=== PATIENT | female | born 1955 | race Caucasian/White ===

== ENCOUNTER → 2017-02-01 | Outpatient (CLI) | payer BC ==
--- NOTE | 2017-02-02 08:21 | MM ---
Reason for exam: screening (asymptomatic). Last mammogram was performed 4 years and 5 months ago. History: Patient is postmenopausal. Family history of breast cancer in sister at age 56. Physical Findings: A clinical breast exam by your physician is recommended on an annual basis and results should be correlated with mammographic findings. MG Screening Mammo w CAD Bilateral CC and MLO view(s) were taken. Prior study comparison: September 14, 2012, bilateral digital screening mammo w/CAD. 2008, mammogram, performed at [facility]. There are scattered fibroglandular densities. There is no discrete abnormality. No significant changes when compared with prior studies. ASSESSMENT: Negative, BI-RAD 1 RECOMMENDATION: Routine screening mammogram of both breasts in 1 year.
== END | disposition home or self-care (01) ==
LOC: RADMAMWWP 08:58
PROVIDERS: ATTEND Family Medicine
DX: Z12.31 Encounter for screening mammogram for malignant neoplasm of breast (principal)

== ENCOUNTER → 2018-02-16 | Outpatient (CLI) | payer BC ==
--- NOTE | 2018-02-17 08:48 | MM ---
Reason for exam: screening (asymptomatic). Last mammogram was performed 1 year ago. History: Patient is postmenopausal. Family history of breast cancer in sister at age 56. Physical Findings: A clinical breast exam by your physician is recommended on an annual basis and results should be correlated with mammographic findings. MG 3D Screening Mammo W/Cad Bilateral CC and MLO view(s) were taken. Prior study comparison: February 01, 2017, bilateral MG screening mammo w CAD. September 14, 2012, bilateral digital screening mammo w/CAD. There are scattered fibroglandular densities. There is no discrete abnormality. No significant changes when compared with prior studies. ASSESSMENT: Negative, BI-RAD 1 RECOMMENDATION: Routine screening mammogram of both breasts in 1 year.
== END | disposition home or self-care (01) ==
LOC: RADMAMWWP 10:18
PROVIDERS: ATTEND Family Medicine
DX: Z12.31 Encounter for screening mammogram for malignant neoplasm of breast (principal)
CPT/HCPCS: 77063; 77067

== ENCOUNTER → 2019-03-23 | Outpatient (CLI) | payer MEDICARE, BC ==
--- NOTE | 2019-03-30 12:03 | MM ---
Reason for exam: screening (asymptomatic). Last mammogram was performed 1 year and 1 month ago. History: Patient is postmenopausal. Family history of breast cancer in sister at age 56. Physical Findings: A clinical breast exam by your physician is recommended on an annual basis and results should be correlated with mammographic findings. MG Screening Mammo w CAD Bilateral CC and MLO view(s) were taken. Prior study comparison: February 16, 2018, bilateral MG 3d screening mammo w/cad. February 01, 2017, bilateral MG screening mammo w CAD. There are scattered fibroglandular densities. There is no discrete abnormality. ASSESSMENT: Negative, BI-RAD 1 RECOMMENDATION: Routine screening mammogram of both breasts in 1 year.
--- NOTE | 2019-03-31 09:41 | BD ---
EXAMINATION TYPE: Axial Bone Density DATE OF EXAM: 03/23/2019 COMPARISON: NONE CLINICAL HISTORY: Z 78.01 Height: 63 Weight: 181.4 FRAX RISK QUESTIONS: Alcohol (3 or more units per day): no Family History (Parent hip fracture): no Glucocorticoids (More than 3mos): no (Ex: prednisone, prednisolone, methylprednisolone, dexamethasone, and hydrocortisone). History of Fracture in Adulthood: no Secondary Osteoporosis: 1. Type 1 Diabetes: no 2. Hyperthyroidism: no 3. Menopause before 45: no 4. Malnutrition: no 5. Chronic liver disease: no Rheumatoid Arthritis: no Current Tobacco Use: no RISK FACTORS HISTORY OF: Family History of Osteoporosis: no Active: yes Postmenopausal woman: age 46 Lost more than 2 inches in height since high school: no MEDICATIONS: blood pressure, cholesterol,vit d Additional History: EXAM MEASUREMENTS: Bone mineral densitometry was performed using the [employer] System. Bone mineral density as measured about the Lumbar spine is: ----- L1-L4(G/cm2): 1.160 T Score Values are as follows: ----- L2: 0.5 ----- L3: -0.1 ----- L4: -0.9 ----- L1-L4: -0.2 Bone mineral density : baseline Bone mineral density about the R hip (g/cm2): 0.784 Bone mineral density about the L hip (g/cm2): 0.775 T Score values are as follows: -----R Neck: -1.8 -----L Neck: -1.9 -----R Total: -1.6 -----L Total: -1.3 Bone mineral density : baseline IMPRESSION: Osteopenia (T Score between -2.5 and -1). There is slightly increased risk of fracture and the patient may be considered for treatment. Re-Screen 2-5 years. NOTE: T-SCORE=SD OF THE YOUNG ADULT MEAN.
== END | disposition home or self-care (01) ==
LOC: RADMAMWWP 10:15
PROVIDERS: ATTEND Family Medicine
DX: Z12.31 Encounter for screening mammogram for malignant neoplasm of breast (principal); M85.80 Other specified disorders of bone density and structure, unspecified site; Z78.0 Asymptomatic menopausal state
CPT/HCPCS: 77067; 77080

== ENCOUNTER → 2020-04-12 | Outpatient (CLI) | payer MEDICARE, BC ==
--- NOTE | 2020-04-12 15:45 | US ---
EXAMINATION TYPE: US thyroid st tissue head/neck DATE OF EXAM: 04/12/2020 COMPARISON: NONE CLINICAL HISTORY: 64-year-old female E04.1 SINGLE THYROID NODULE. TECHNIQUE: Multiple sonographic images of the thyroid gland are obtained. FINDINGS: GLAND SIZE: Right Lobe: 4.6 x 2.0 x 2.1 cm Overall Parenchyma: homogenous Left Lobe: 3.8 x 1.2 x 1.6 cm Overall Parenchyma: homogeneous Isthmus Thickness: 0.2 cm NODULES Sub-centimeter thyroid nodules, likely tiny cysts, noted bilaterally. Largest nodule measured on the right RIGHT: # of nodules measured on right: 1 1. 1.6 X 1.1 x 1.3 cm isoechoic solid nodule at the mid/lower pole with well-defined margins . Thi s nodule is wider than tall and shows intranodular vascularity. Prior size: no prior Bilateral neck scanned, no evidence of lymphadenopathy. IMPRESSION: Dominant 1.6 cm solid nodule at the right mid to lower pole. The decision to biopsy should be made on a clinical basis.
== END | disposition home or self-care (01) ==
LOC: RADUSWWP 14:48
PROVIDERS: ATTEND Nurse Practitioner Adult Health
DX: E04.1 Nontoxic single thyroid nodule (principal); Z88.8 Allergy status to other drugs, medicaments and biological substances
CPT/HCPCS: 76536

== ENCOUNTER → 2020-04-12 | Outpatient (CLI) | payer MEDICARE, BC | END | disposition home or self-care (01) | LOC: LABWHC1 14:48 | PROVIDERS: ATTEND Nurse Practitioner Adult Health | DX: E04.1 Nontoxic single thyroid nodule (principal) | CPT/HCPCS: 36415; 84402; 84443; 84481 ==

== ENCOUNTER 2020-04-30 13:06 | Day surgery (SDC) | payer MEDICARE, BC ==
[2020-04-30 14:14] VITALS: PULSE 60; RESP 16; TEMP 98.1
--- NOTE | 2020-04-30 14:15 | US ---
ULTRASOUND GUIDED FNA THYROID BIOPSY: CLINICAL HISTORY: Right thyroid nodule FINDINGS: The procedure was explained to the patient. The risks, complications, benefits and alternatives were discussed and any questions were answered. Informed consent was obtained. Patient was placed supin e on the ultrasound table and prepped and draped in the usual sterile fashion. Utilizing a 25 gauge needle, five passes were made into the requested right thyroid nodule. Patient was stable throughout the procedure. Pathology is pending. All elements of maximal barrier technique were utilized. IMPRESSION: 1. Successful ultrasound guided FNA thyroid biopsy.
[2020-04-30 14:36] VITALS: BP 121/70
== END 2020-04-30 14:05 | disposition home or self-care (01) ==
LOC: RADPROMAIN 13:06
PROVIDERS: ATTEND Family Medicine
DX: E04.1 Nontoxic single thyroid nodule (principal)
CPT/HCPCS: 10005; 88173; 88305

== ENCOUNTER → 2021-11-28 | Outpatient (CLI) | payer MEDICARE, BC ==
--- NOTE | 2021-11-28 16:05 | BD ---
EXAMINATION TYPE: Axial Bone Density DATE OF EXAM: 11/28/2021 COMPARISON: 03/31/2019 CLINICAL HISTORY: 65 years year old Female. ICD-10 CODE: Z13.820 Encounter for osteoporosis day[employer] price in asympt Z78.0 Height: 62 IN Weight: 177 LBS RISK FACTORS HISTORY OF: Active: YES Diet low in dairy products/other sources of calcium: YES Postmenopausal woman: AGE 43 MEDICATIONS: Additional Medications: VIT D ,PRAVASTATIN,NAPROXEN, AMLODIPINE, OCUVITE, ACETAMINOPHEN EXAM MEASUREMENTS: Bone mineral densitometry was performed using the [employer] System. Bone mineral density as measured about the Lumbar spine is: ----- L1-L4(G/cm2): 1.156 T Score Values are as follows: ----- L1: 0.3 ----- L2: 0.6 ----- L3: -0.3 ----- L4: -1.4 ----- L1-L4: -0.2 Bone mineral density has: Decreased -2.0% since study of: 03/31/2019 Bone mineral density about the R hip (g/cm2): 0.765 Bone mineral density about the L hip (g/cm2): 0.747 T Score values are as follows: -----R Neck: -2.0 -----L Neck: -2.1 -----R Total: -1.9 -----L Total: -1.7 Bone mineral density has: Decreased -5.2% since study of: 03/31/2019 FRAX%s: The graph provided illustrates a 4.6 chance for a major osteoporotic fx and a 1.3 chance for the hips probability for fx in 10 years time . IMPRESSION: Osteopenia (T Score between -2.5 and -1). There is slightly increased risk of fracture and the patient may be considered for treatment. Re-Screen 2-5 years. NOTE: T-SCORE=SD OF THE YOUNG ADULT MEAN.
== END | disposition home or self-care (01) ==
LOC: RADMAMWWP 10:23
PROVIDERS: ATTEND Internal Medicine
DX: Z12.31 Encounter for screening mammogram for malignant neoplasm of breast (principal); Z13.820 Encounter for screening for osteoporosis; Z78.0 Asymptomatic menopausal state
CPT/HCPCS: 77063; 77067; 77080

== ENCOUNTER → 2022-12-08 | Outpatient (CLI) | payer MEDICARE, BC ==
--- NOTE | 2022-12-08 16:07 | US ---
EXAMINATION TYPE: US thyroid st tissue head/neck DATE OF EXAM: 12/08/2022 COMPARISON: US 04/12/2020 CLINICAL INDICATION: Female, 66 years old with history of E04.1 NONTOXIC SINGLE THYROID NODULE; GLAND SIZE: Right Lobe: 4.2 X 2.4 X 1.6 cm Overall Parenchyma: homogenous Left Lobe: 4.2 X 1.4 X 1.5 cm Overall Parenchyma: homogeneous Isthmus Thickness: 0.2 cm NODULES RIGHT: # of nodules measured on right: 1 1. 1.4 X 1.4 x 1.3 cm, mid mid, solid or almost completely solid, isoechoic TR3 nodule, which is wi gifty than tall, with smooth margins, without echogenic foci. Prior size: 1.6 x 1.1 x 1.3 cm LEFT: # of nodules measured on left: 1 1. 0.5 X 0.4 x 0.4 cm, mid mid, solid or almost completely solid, hypoechoic TR 4 nodule, which is wider than tall, with smooth margins, without echogenic foci. Prior size: NO PREVIOUS ISTHMUS: # of nodules measured in the isthmus: 0 Bilateral neck scanned, no evidence of lymphadenopathy. IMPRESSION: Stable 1.4 cm TR3 nodule in the right lobe. A small 5 mm TR for nodule in the left lobe which can be reassessed at follow-up.
--- NOTE | 2022-12-09 20:12 | MM ---
Reason for Exam: Screening (asymptomatic). Last screening mammogram was performed 12 month(s) ago. Patient History: Menarche at age 9. First Full-Term at age 25. Postmenopausal. Sister had breast cancer, age 56. Risk Values: Elzbieta 5 year model risk: 3.7%. NCI Lifetime model risk: 11.6%. Prior Study Comparison: 02/16/2018 Bilateral Screening Mammogram, [facility]. 03/23/2019 Bilateral Screening Mammogram, [facility]. 11/28/2021 Bilateral MG 3D screening mammo w/cad, [facility]. Tissue Density: The breast tissue is heterogeneously dense. This may lower the sensitivity of mammography. Findings: Analyzed By CAD. There is no suspicious group of microcalcifications or new suspicious mass in either breast. Overall Assessment: Negative, BI-RAD 1 Management: Screening Mammogram of both breasts in 1 year. See note below in regards to patient's increased five-year Elzbieta score. Patient should continue monthly self-breast exams. A clinical breast exam by your physician is recommended on an annual basis. This exam should not preclude additional follow-up of suspicious palpable abnormalities. Note on Elzbieta scores and lifetime risk: 1. A Elzbieta score greater than 3% is considered moderate risk. If this is the case, consider specialist referral to assess eligibility for a risk reducing agent. 2. If overall lifetime risk for the development of breast cancer is 20% or higher, the patient may qualify for future screening with alternating mammogram and breast MRI. Electronically signed and approved by: Fay Valera M.D. Radiologist
== END | disposition home or self-care (01) ==
LOC: RADMAMWWP 11:45
PROVIDERS: ATTEND Internal Medicine
DX: Z12.31 Encounter for screening mammogram for malignant neoplasm of breast (principal); E04.1 Nontoxic single thyroid nodule; Z78.0 Asymptomatic menopausal state; Z80.3 Family history of malignant neoplasm of breast
CPT/HCPCS: 76536; 77063; 77067

== ENCOUNTER → 2023-12-10 | Outpatient (CLI) | payer MEDICARE, BC ==
--- NOTE | 2023-12-10 12:00 | US ---
EXAMINATION TYPE: US thyroid st tissue head/neck DATE OF EXAM: 12/10/2023 COMPARISON: 12/08/2022 CLINICAL INDICATION: Female, 67 years old with history of E04.1 NONTOXIC SINGLE THYROID NODULE; F/U n odules GLAND SIZE: Right Lobe: 4.1 x 1.8 x 1.8 cm Overall Parenchyma: homogeneous Left Lobe: 4.2 x 1.5 x 1.2 cm Overall Parenchyma: homogeneous Isthmus Thickness: 0.2 cm NODULES RIGHT: # of nodules measured on right: 1 1. 1.7 X 1.1 x 1.4 cm, mid, solid or almost completely solid, isoechoic nodule, which is wider than tall, with smooth margins, without echogenic foci. Prior size: 1.4 x 1.4 x 1.3 cm LEFT: # of nodules measured on left: 1 1. 0.5 X 0.4 x 0.4 cm, mid, solid or almost completely solid, hypoechoic nodule, which is wider connie n tall, with smooth margins, without echogenic foci. Prior size: 0.5 x 0.4 x 0.4 cm ISTHMUS: # of nodules measured in the isthmus: 0 Bilateral neck scanned, no evidence of lymphadenopathy. Minimal enlargement of right thyroid nodule, left thyroid nodule unchanged. IMPRESSION: 1. Mild enlargement of a TR 3 right thyroid nodule which now measures 1.7 cm and previously measured 1.4 cm. 2. Stable left TR for nodule which is 0.5 cm. 2017 ACR TI-RADS LEVEL: 4 *Highest TI-RADS level nodule reported
--- NOTE | 2023-12-10 18:55 | MM ---
Reason for Exam: Screening (asymptomatic). Last screening mammogram was performed 12 month(s) ago. Patient History: Menarche at age 9. First Full-Term at age 25. Postmenopausal. Sister had breast cancer, age 56. Risk Values: Elzbieta 5 year model risk: 3.7%. NCI Lifetime model risk: 11.1%. Prior Study Comparison: 03/23/2019 Bilateral Screening Mammogram, [facility]. 11/28/2021 Bilateral MG 3D screening mammo w/cad, [facility]. 12/08/2022 Bilateral MG 3D screening mammo w/cad, [facility]. Tissue Density: The breasts are heterogeneously dense, which may obscure small masses. Findings: Analyzed By CAD. The pattern is symmetrical. No suspicious groups of microcalcifications, spiculated or lobular masses, architectural distortion or other secondary signs of malignancy are mammographically apparent. Overall Assessment: Negative, BI-RAD 1 Management: Screening Mammogram of both breasts in 1 year. A negative mammogram report should not preclude additional follow up of suspicious palpable abnormalities. Patient should continue monthly self breast exam. A clinical breast exam by your physician is recommended on an annual basis and results should be correlated with mammographic findings. Note on Elzbieta scores and lifetime risk: 1. A Elzbieta score greater than 3% is considered moderate risk. If this is the case, consider specialist referral to assess eligibility for a risk reducing agent. 2. If overall lifetime risk for the development of breast cancer is 20% or higher, the patient may qualify for future screening with alternating mammogram and breast MRI. Electronically signed and approved by: Josué Villa D.O. Radiologis
== END | disposition home or self-care (01) ==
LOC: RADMAMWWP 09:47
PROVIDERS: ATTEND Internal Medicine
DX: Z12.31 Encounter for screening mammogram for malignant neoplasm of breast (principal); E04.2 Nontoxic multinodular goiter; Z78.0 Asymptomatic menopausal state; Z80.3 Family history of malignant neoplasm of breast
CPT/HCPCS: 76536; 77063; 77067

== ENCOUNTER → 2024-01-25 | Day surgery (SDC) | payer MEDICARE, BC ==
--- NOTE | 2024-02-15 15:58 | US ---
Report Patient: Lily Quintana Ordering Physician: Unknown, Unknown ID: [id number] Phone, Pager: Phone: N/A Pager: N/A : [phone] Age/Gender: 68Y, F Primary Location: N/A Procedure: US FNA thyroid first lesion Study Date: 01/25/2024 2:13:00 PM EXAMINATION TYPE: US FNA thyroid DATE OF EXAM: 01/25/2024 9:58 AM REASON FOR EXAM: 12/10/2023 RADIOLOGIST: Dr. Valera PROCEDURE: An initial scanning showed the heterogeneous solid 2.0 cm nodule at the right mid to lower pole. This is targeted for FNA. The procedure, along with the risks and complications were discussed with the patient. Patient agreed to proceed with the procedure. A consent was signed and placed in patient's chart. Maximum sterile barrier technique was utilized. Timeout was performed by myself. The right side of th e neck was sterilely prepped and draped in the usual fashion. 3 milliliters of 1% Lidocaine were util ized to anesthetize the superficial and deep soft tissues at each nodule in turn. Following that, under ultrasound guidance, 5 passes were made into each nodule with 5 cc syringe suct ion. After each pass, the sample was placed on a slide and then sent for pathology. Upon conclusion, hemostasis was achieved, and patient was discharged home in satisfactory condition. IMPRESSION: Successful FNA of the 2 cm solid nodule at the right mid to lower pole. Pathology pending.
== END ==
LOC: RADPROMAIN 13:00
PROVIDERS: ATTEND Internal Medicine
DX: E04.1 Nontoxic single thyroid nodule (principal)
CPT/HCPCS: 10005

== ENCOUNTER → 2024-05-26 | Outpatient (CLI) | payer MEDICARE, BC ==
[2024-05-26 14:14] VITALS: BP 147/83; PULSE 73; RESP 17; TEMP 97.7
--- NOTE | 2024-05-26 14:37 | P.GSCN ---
History of Present Illness Consult date: 05/26/24 Reason for Consult: high risk for breast cancer Requesting physician: Jin Oseguera History of present illness: Lily is a 68 year old female seen in consultation for Dr. Oseguera regarding an increased risk for breat cancer. She had a bilateral mammogram on 12-10-23 which was BIRAD 1. She is not complaining of any skin changes in her breast she is not complaining of any new lumps masses or nodules of concern. She has not complained of any nipple discharge or skin changes in her breast. She has not had any surgery on her breast. She has not had any biopsies on her breast. She is not complaining of any recent trauma or infection in her breast. caffeine: coffee: 3 mugs in am nicotine: none chocolate: occasional Elzbieta 5 year risk: 3.7% lifetime risk: 11.1% Family History: father: prostate cancer sister: bladder cancer, breast cancer times three mets she form this it was during COVID great grandmother maternal: throat cancer not a smoker but her was Hormonal History Menarche: 10 breast fed: yes, age at : 25 menopause: 40's BCP: none hormones: none Surgical History: biopsy of gthyroid nodules colonoscopies Medical History: high cholesterol HTN arthritis back and neck pain/ arthritis Social History: nicotine: none alcohol: none drugs: none Review of Systems - Constitutional Denies fever, Denies weight loss - EENT Eyes: denies blurred vision Ears: deny: decreased hearing, tinnitus Ears, nose, mouth and throat: Denies dysphagia - Breasts bilateral: as per HPI - Cardiovascular Denies chest pain, Denies shortness of breath - Respiratory Denies cough, Denies 7 - Gastrointestinal Reports as per HPI - Genitourinary Genitourinary: Denies dysuria, Denies hematuria Menstruation: Reports postmenopausal - Musculoskeletal Reports as per HPI - Integumentary Denies rash, Denies unusual bruising - Neurological Denies headaches, Denies syncope - Psychiatric Reports as per HPI - Endocrine Reports as per HPI, Reports fatigue, Reports weight change - Hematologic/Lymphatic Reports as per HPI - Allergic/Immunologic Reports seasonal allergies Past Medical History Past Medical History: Eye Disorder, GERD/Reflux, Hyperlipidemia, Hypertension, Osteoarthritis (OA), Thyroid Disorder Additional Past Medical History / Comment(s): pinched nerve in neck, left shoulder, early macular degeneration, arthritis in lower back, History of Any Multi-Drug Resistant Organisms: None Reported Additional Past Surgical History / Comment(s): colonoscopy, thyroid biopsy Past Anesthesia/Blood Transfusion Reactions: No Reported Reaction Past Psychological History: No Psychological Hx Reported Smoking Status: Never smoker Past Alcohol Use History: None Reported Past Drug Use History: None Reported - Past Family History Sister(s) Family Medical History: Cancer, Thyroid Disorder Additional Family Medical History / Comment(s): bladder/breast CA x3 Father Family Medical History: Cancer Additional Family Medical History / Comment(s): Prostate CA Medications and Allergies Home Medications Medication Instructions Recorded Confirmed Type Acetaminophen [Acetaminophen 8 1,300 mg PO DAILY 04/19/20 05/26/24 History Hour] Famotidine 20 mg PO HS PRN 04/19/20 05/26/24 History Loratadine [Claritin] 10 mg PO DAILY PRN 04/19/20 05/26/24 History Naproxen 500 mg PO HS 04/19/20 05/26/24 History Pravastatin Sodium [Pravachol] 60 mg PO HS 04/19/20 05/26/24 History amLODIPine [Norvasc] 5 mg PO HS 04/19/20 05/26/24 History Vit C/E/Zn/Coppr/Lutein/Zeaxan 1 each PO DAILY 01/18/24 05/26/24 History [Preservision Areds 2 Softgel] Allergies Allergy/AdvReac Type Severity Reaction Status Date / Time methylprednisolone Allergy Rapid Verified 05/26/24 14:12 [From Medrol] Heart Rate Surgical - Exam Vital Signs Temp Pulse Resp BP Pulse Ox 97.7 F 73 17 147/83 100 05/26/24 14:12 05/26/24 14:12 05/26/24 14:12 05/26/24 14:12 05/26/24 14:12 - General no distress - Eyes normal ocular movement - ENT no hearing loss - Neck trachea midline - Respiratory normal respiratory effort, clear to auscultation - Cardiovascular Rhythm: regular Heart Sounds: normal: S1, S2 - Abdomen Abdomen: soft, non tender, no guarding, no rigid, no rebound - Integumentary normal turgor - Neurologic no disoriented, no combative - Musculoskeletal normal gait - Psychiatric oriented to time, oriented to person, oriented to place, speech is normal, memory intact Breast Exam: BRA: 38B Inspection: Bilateral grade 2/3 ptosis Palpation: Right breast: Multi positional exam no dominant masses or nodules of concern Right axilla: No adenopathy of concern Left breast: Multi positional exam no dominant masses or nodules of concern Left axilla: No adenopathy of concern Breast are dense bilaterally but no discrete dominant masses or nodules of concern Results Bilateral mammogram results reviewed from 12-10-2023 Assessment and Plan Assessment: Impression: Increased risk of breast cancer Elzbieta 5-year risk 3.7% Plan: 1. genetic counselling and testing 2. We have discussed chemoprophylaxis and she has declined at this time 3. bilateral mammogram in November 2024 with appointment at that time CC: Dr. Oseguera
== END ==
LOC: WWCWWP 14:02
PROVIDERS: ATTEND Surgery
DX: Z15.01 Genetic susceptibility to malignant neoplasm of breast (principal); R92.8 Other abnormal and inconclusive findings on diagnostic imaging of breast; Z80.3 Family history of malignant neoplasm of breast; Z88.8 Allergy status to other drugs, medicaments and biological substances

== ENCOUNTER → 2024-12-11 | Outpatient (CLI) | payer MEDICARE, BC ==
--- NOTE | 2024-12-11 10:21 | MM ---
Reason for Exam: Screening (asymptomatic). Last screening mammogram was performed 12 month(s) ago. Patient History: Menarche at age 9. First Full-Term at age 25. Postmenopausal. Sister had breast cancer, age 56. Risk Values: Elzbieta 5 year model risk: 3.7%. NCI Lifetime model risk: 10.6%. Prior Study Comparison: 11/28/2021 Bilateral MG 3D screening mammo w/cad, [facility]. 12/08/2022 Bilateral MG 3D screening mammo w/cad, [facility]. 12/10/2023 Bilateral MG 3D screening mammo w/cad, [facility]. Tissue Density: There are scattered areas of fibroglandular density. Findings: Analyzed By CAD. Right breast: There is no suspicious group of microcalcifications or new suspicious mass. Left breast: There is no suspicious group of microcalcifications or new suspicious mass. Overall Assessment: Negative, BI-RAD 1 Management: Screening Mammogram of both breasts in [address] [facility] will attempt to contact patient to return for supplemental views and ultrasound if indicated. Patient should continue monthly self-breast exams. A clinical breast exam by your physician is recommended on an annual basis. This exam should not preclude additional follow-up of suspicious palpable abnormalities. Note on Elzbieta scores and lifetime risk: 1. A Elzbieta score greater than 3% is considered moderate risk. If this is the case, consider specialist referral to assess eligibility for a risk reducing agent. 2. If overall lifetime risk for the development of breast cancer is 20% or higher, the patient may qualify for future screening with alternating mammogram and breast MRI. [facility], , 12/11/2024 10:17 AM. Electronically signed and approved by: Shane Ivory DO
== END | disposition home or self-care (01) ==
LOC: RADMAMWWP 09:28
PROVIDERS: ATTEND Surgery
DX: Z12.31 Encounter for screening mammogram for malignant neoplasm of breast (principal); R92.323 Mammographic fibroglandular density, bilateral breasts; Z78.0 Asymptomatic menopausal state; Z80.3 Family history of malignant neoplasm of breast
CPT/HCPCS: 77063; 77067

== ENCOUNTER → 2025-01-12 | Outpatient (CLI) | payer MEDICARE, BC ==
[2025-01-12 12:30] VITALS: BP 133/79; PULSE 65; RESP 17; TEMP 97.7
--- NOTE | 2025-01-12 12:52 | P.PN ---
Subjective Progress Note Date: 01/12/25 Principal diagnosis: high risk breast cancer 01-12-25 Reason for Consult: high risk for breast cancer Requesting physician: Jin Oseguera History of present illness: Lily is a 69 year old female seen in consultation for Dr. Oseguera regarding an increased risk for breast cancer. She had a bilateral mammogram on 12-11-24 which was [facility]IR[facility] 1. This was personally reviewed. She is not complaining of any skin changes in her breast she is not complaining of any new lumps masses or nodules of concern. She has not complained of any nipple discharge or skin changes in her breast. She has not had any surgery on her breast. She has not had any biopsies on her breast. She is not complaining of any recent trauma or infection in her breast. caffeine: coffee: 3 mugs in am nicotine: none chocolate: occasional Elzbieta 5 year risk: 3.7% lifetime risk: 11.1% Family History: father: prostate cancer sister: bladder cancer, breast cancer times three mets she form this it was during COVID great grandmother maternal: throat cancer not a smoker but her was Hormonal History Menarche: 10 breast fed: yes, age at : 25 menopause: 40's BCP: none hormones: none Surgical History: biopsy of gthyroid nodules colonoscopies Medical History: high cholesterol HTN arthritis back and neck pain/ arthritis Social History: nicotine: none alcohol: none drugs: none Review of Systems - Constitutional Denies fever, Denies weight loss - EENT Eyes: denies blurred vision Ears: deny: decreased hearing, tinnitus Ears, nose, mouth and throat: Denies dysphagia - Breasts bilateral: as per HPI - Cardiovascular Denies chest pain, Denies shortness of breath - Respiratory Denies cough - Gastrointestinal Reports as per HPI - Genitourinary Genitourinary: Denies dysuria, Denies hematuria Menstruation: Reports postmenopausal - Musculoskeletal Reports as per HPI - Integumentary Denies rash, Denies unusual bruising - Neurological Denies headaches, Denies syncope - Psychiatric Reports as per HPI - Endocrine Reports as per HPI, Reports fatigue, Reports weight change - Hematologic/Lymphatic Reports as per HPI - Allergic/Immunologic Reports seasonal allergies Past Medical History Past Medical History: Eye Disorder, GERD/Reflux, Hyperlipidemia, Hypertension, Osteoarthritis (OA), Thyroid Disorder Additional Past Medical History / Comment(s): pinched nerve in neck, left shoulder, early macular degeneration, arthritis in lower back, History of Any Multi-Drug Resistant Organisms: None Reported Additional Past Surgical History / Comment(s): colonoscopy, thyroid biopsy Past Anesthesia/Blood Transfusion Reactions: No Reported Reaction Past Psychological History: No Psychological Hx Reported Smoking Status: Never smoker Past Alcohol Use History: None Reported Past Drug Use History: None Reported - Past Family History Sister(s) Family Medical History: Cancer, Thyroid Disorder Additional Family Medical History / Comment(s): bladder/breast CA x3 Father Family Medical History: Cancer Additional Family Medical History / Comment(s): Prostate CA Medications and Allergies Home Medications Medication Instructions Recorded Confirmed Type Acetaminophen [Acetaminophen 8 1,300 mg PO DAILY 04/19/20 05/26/24 History Hour] Famotidine 20 mg PO HS PRN 04/19/20 05/26/24 History Loratadine [Claritin] 10 mg PO DAILY PRN 04/19/20 05/26/24 History Naproxen 500 mg PO HS 04/19/20 05/26/24 History Pravastatin Sodium [Pravachol] 60 mg PO HS 04/19/20 05/26/24 History amLODIPine [Norvasc] 5 mg PO HS 04/19/20 05/26/24 History Vit C/E/Zn/Coppr/Lutein/Zeaxan 1 each PO DAILY 01/18/24 05/26/24 History [Preservision Areds 2 Softgel] Allergies Allergy/AdvReac Type Severity Reaction Status Date / Time methylprednisolone Allergy Rapid Verified 05/26/24 14:12 [From Medrol] Heart Rate Objective - Vital Signs Vital signs: Vital Signs Temp 97.7 F 01/12/25 12:28 Pulse 65 01/12/25 12:28 Resp 17 01/12/25 12:28 BP 133/79 01/12/25 12:28 Pulse Ox 99 01/12/25 12:28 FiO2 Intake & Output 01/11/25 01/12/25 01/12/25 18:59 06:59 18:59 Weight 72.575 kg - Constitutional General appearance: Present: cooperative - EENT Eyes: Present: EOMI ENT: Present: hearing grossly normal - Neck Neck: Present: normal ROM - Respiratory Respiratory: bilateral: CTA - Cardiovascular Rhythm: regular Heart sounds: normal: S1, S2 - Integumentary Integumentary: Present: normal turgor - Musculoskeletal Musculoskeletal: Present: gait normal - Psychiatric Psychiatric: Present: A&O x's 3, appropriate affect, intact judgment & insight - Additional findings Additional findings: Breast Exam: BRA: 38B Inspection: Bilateral grade 2/3 ptosis Palpation: Right breast: Multi positional exam no dominant masses or nodules of concern Right axilla: No adenopathy of concern Left breast: Multi positional exam no dominant masses or nodules of concern, she has some mild asymmetry with increased fullness in the upper outer quadrant relative to the right side Left axilla: No adenopathy of concern Breast are dense bilaterally but no discrete dominant masses or nodules of concern Assessment and Plan Assessment: Impression: Increased risk of breast cancer Elzbieta 5-year risk 3.7% bilateral mammogram 12-11-24 [facility] 1, personally reviewed Plan: 1. genetic counselling recommended and she declined 2. We have discussed chemoprophylaxis and she has declined at this time 3. bilateral mammogram in November 2025 with appointment at that time 4. follow up sooner any concerns 5. Left breast ultrasound upper outer quadrant to evaluate the increased fullness/asymmetry relative to that on the right side, follow-up after this is done CC: Dr. Oseguera
== END ==
LOC: WWCWWP 12:16
PROVIDERS: ATTEND Surgery
DX: Z01.419 Encounter for gynecological examination (general) (routine) without abnormal findings (principal); Z88.8 Allergy status to other drugs, medicaments and biological substances

== ENCOUNTER → 2025-01-19 | Outpatient (CLI) | payer MEDICARE, BC ==
--- NOTE | 2025-01-19 08:01 | USB ---
Reason for Exam: Clinical finding. Patient History: Menarche at age 9. First Full-Term at age 25. Postmenopausal. Sister had breast cancer, age 56. Risk Values: Elzbieta 5 year model risk: 3.8%. NCI Lifetime model risk: 10.2%. Technique: Method: Targeted. Prior Study Comparison: 12/08/2022 Bilateral MG 3D screening mammo w/cad, [facility]. 12/10/2023 Bilateral MG 3D screening mammo w/cad, [facility]. 12/11/2024 Bilateral MG 3D screening mammo w/cad, [facility]. Findings: The upper outer quadrant of the left breast, the axilla of the left breast and the retroareolar of the left breast were scanned. Targeted ultrasound in the site of patient's upper outer quadrant fullness with scanning from 12:00 to 3:00 including assessment of the subareolar region and axilla. There is no solid or cystic lesion or axillary adenopathy. Overall Assessment: Probably benign, BI-RAD 3 Management: Diagnostic Mammogram of the left breast in 4 months. As a precautionary measure to assess for any changes compared to the patient's recent screening mammogram. A clinical breast exam by your physician is recommended on an annual basis and results should be correlated with mammographic findings. This exam should not preclude additional follow-up of suspicious palpable abnormalities. Results were given to the patient verbally at the time of exam. [facility], , 01/19/2025 7:58 AM. Electronically signed and approved by: Fay Valera M.D. Radiologist
== END | disposition home or self-care (01) ==
LOC: RADUSWWP 07:28
PROVIDERS: ATTEND Surgery
DX: N62 Hypertrophy of breast (principal); Z78.0 Asymptomatic menopausal state; Z80.3 Family history of malignant neoplasm of breast